=== PATIENT | female | born 1990 | race Caucasian/White ===

== ENCOUNTER 2022-11-06 06:48 | Observation (INO) ==
[2022-11-06] MEDS ORDERED: SODIUM CHLORIDE 0.9% 1000ML 1,000 ML IV STA (07:30)
[2022-11-06] MEDS ORDERED: ONDANSETRON INJ 2 MG/ML 2 ML VIAL IV STA (07:30)
[2022-11-06] MEDS ORDERED: KETOROLAC TROMETHAMINE 15 MG/ML VIAL IV STA (07:30)
--- NOTE | 2022-11-06 07:34 | Emergency Department Note ---
Impression & Plan Complicated UTI (urinary tract infection), Acute pyelitis ED Provider Note CHIEF COMPLAINT: Right flank and abdominal pain HISTORY OF PRESENTING ILLNESS: This is a 32-year-old female who presents to the emergency department by private vehicle with complaint of right-sided abdominal and flank pain for the last few days. She is also having some suprapubic pain. The pain has been constant, and has been getting progressively more severe, she currently rates the pain 8/10. She is unsure if she has had any fevers, but states that she has been having chills and sweats at home. Associated nausea but no vomiting. Denies diarrhea or constipation. She has taken ibuprofen for the pain with minimal relief, she last took this about 8 hours ago. She notes a history of urinary retention and "blockages in my ureter from scar tissue" but denies a history of kidney stones. 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 She reports surgical history of cholecystectomy and total hysterectomy for endometriosis. She denies any chest pain, chest tightness, shortness of breath, dizziness or syncope. REVIEW OF SYSTEMS: A complete 10 point review of systems was reviewed with the patient with pertinent positives and negatives as per history of present illness. All else were negative. PAST MEDICAL HISTORY: Anxiety, depression, bipolar, history of total hysterectomy and cholecystectomy SOCIAL HISTORY: Lives at home, she is a current everyday smoker ALLERGIES: Reviewed in chart with the patient PHYSICAL EXAM: CONSTITUTIONAL: Pleasant and cooperative. Nontoxic appearing and in no acute distress. Well appearing and well nourished. HEENT: Normocephalic, atraumatic. NECK: Supple, full active range of motion without discomfort. RESPIRATORY: Clear to auscultation bilaterally with no wheezing, crackles, rhonchi or stridor. Equal expansion bilaterally. CARDIOVASCULAR: Regular rate and rhythm with no murmurs, rubs or gallops. Normal peripheral perfusion. No edema. GASTROINTESTINAL: Diffuse tenderness to palpation, most tender in the right mid and lower abdomen. No rebound tenderness or guarding. Abdomen is soft and nondistended. No palpable masses or HSM. Bowel sounds present in all quadrants. Bilateral CVA tenderness. MUSCULOSKELETAL: Full range of motion of all joints without discomfort. INTEGUMENTARY: No rash or other significant dermatologic conditions noted. NEUROLOGIC: Alert and oriented X 4 with normal affect. Normal speech. Normal gait observed. ED COURSE AND MEDICAL DECISION MAKING: CC: Patient presenting with complaint of right flank and abdominal pain DIFFERENTIAL DIAGNOSIS: Includes, but not limited to pyelonephritis, UTI, ureteral stone, appendicitis, ovarian cyst, ovarian torsion, cholelithiasis, pancreatitis, gastroenteritis, colitis, diverticulitis, PID, constipation, among others. INTERPRETATION OF LABS: No leukocytosis, no anemia, normal platelets, no significant electrolyte abnormalities, normal renal function, normal liver enzymes and lipase. UA shows large WBCs and 1+ bacteria with large epithelial cells, no RBCs. COVID-negative. MEDICATION RECONCILIATION: I attest that I have personally reviewed the patient's current medication list. INITIAL VITAL SIGNS REVIEW: I reviewed the patient's initial vital signs and interpret them as follows: T: Afebrile; BP: Normotensive; HR: Within normal limits; RR: Within normal limits; Pulse Ox: Within normal limits on room air. MDM SUMMARY: Patient was evaluated at bedside, history and physical exam performed. Patient is alert and oriented, in no acute distress, resting calmly in the stretcher. She is afebrile and nontoxic-appearing, does appear to be uncomfortable from pain and is tearful during my exam. Diffuse tenderness throughout the abdomen, most tender along the right side as noted above. Bilateral CVA tenderness. Cardiac monitoring: An order was placed for continuous cardiac monitoring. The monitor shows a rate of 72 beats per minute with normal sinus rhythm. Orders were placed for labs, UA, IV fluid bolus for hydration, IV Toradol for pain, IV Zofran for nausea, CT abdomen/pelvis with IV to evaluate for abdominal pain. Patient discussed with Dr. Chawla, who agrees with my assessment, plan, and di sposition. Labs and imaging reviewed as above, no leukocytosis, normal renal function, no significant abnormalities. UA suspicious for possible UTI though there are large epithelial cells which may be consistent with contaminated specimen, urine culture pending. CT imaging shows urothelial thickening of the bilateral ureters concerning for pyelitis, distended bladder, no ureteral stones or hydronephrosis. Patient reassessed multiple times throughout ED stay, she continues to complain of severe pain and is tearful. She has already received 15 mg IV Toradol and 8 mg total of IV morphine and states that this "has not touched my pain." The patient did request Dilaudid by name stating that this has worked for her in the past. I was unable to obtain any data from PDMP regarding the patient, no reports available. Given the patient's reported history of urinary retention in the setting of se froylan pain with CT findings concerning for pyelitis, I did feel it was warranted to admit this patient for further evaluation and IV antibiotics. 2 g Rocephin IV ordered and 0.5 mg IV Dilaudid ordered for continued pain management. I spoke on the phone with Dr. Lujan, [facility] Hospitalist, who agrees to evaluate the patient for admission The patient was updated on all results and plan for admission, she was agreeable to this plan. The patient was stable at the time of admission. The chart was completed utilizing [employer] Speech voice recognition software. Grammatical errors, random word insertions, pronoun errors, and incomplete sentences are an occasional consequence of this system due to software limitations, ambient noise, and hardware issues. Any formal questions or concerns about the content, text, or information contained within the body of this dictation should be directly addressed to the nurse practitioner for clarification. Past Med/Surg History Medical History (Updated 11/06/22 @ 16:48 by KAROLINE Clayton) Bipolar affect, depressed Ureteral obstruction Surgical History (Updated 11/06/22 @ 10:59 by Elan Lujan MD) H/O: hysterectomy History of cholecystectomy Social History (Updated 11/06/22 @ 10:59 by Elan Lujan MD) Smoking Status: Current every day smoker Tobacco Type: Cigarettes Cigarettes Per Day: 3-5; Hx Alcohol Use: Yes Alcohol type: beer Hx Substance Use: No Preferred Language: Upper Sorbian Communication Ability: Effective Interlocker Required: No Beliefs That Will Affect Care: None Current Living Situation: Alone Other Information That Helps Us Care for You: No Feels Safe at Home: Yes Assistive Devices: None Allergies Allergies Allergy/AdvReac Type Severity Reaction Status Date / Time codeine Allergy Mild Rash Unverified 11/06/22 10:21 Home Meds Home Medications Medication Instructions Recorded Confirmed buspirone 10 mg tablet 10 mg PO BID 11/06/22 11/06/22 estradiol 2 mg tablet 2 mg PO PM 11/06/22 11/06/22 fluoxetine 60 mg tablet 60 mg PO PM 11/06/22 11/06/22 lurasidone 40 mg tablet (Latuda) 40 mg PO PM 11/06/22 11/06/22 trazodone 150 mg tablet 150 mg PO QAM 11/06/22 11/06/22 Results & Data (ED) Vital Signs Vital Signs - 24 hr 11/06/22 06:53 Temperature 36.8 C Temperature Source Temporal Artery Scan Pulse Rate 75 Respiratory Rate 18 Blood Pressure 126/75 Blood Pressure Mean 92 Pulse Oximetry 98 Oxygen Delivery Method Room Air Sepsis Recent Fever Within 48 Hours No Sepsis New/Unexplained Change in Mental Status No Sepsis Action Taken by Nursing No Action Required Laboratory Data 11/06/22 07:55 11/06/22 07:55 Lab Results 11/06/22 11/06/22 11/06/22 Range/Units 07:40 07:55 07:55 WBC 7.34 (4.8-10.8) K/ul RBC 3.97 L (4.20-5.40) M/uL Hgb 12.5 (12.0-16.0) g/dl Hct 37.1 (37.0-47.0) % MCV 93.5 (80.0-100.0) fL MCH 31.5 (25.0-34.0) pg MCHC 33.7 (32.0-36.0) g/dL RDW Std Deviation 42.5 (36.4-46.3) fL RDW Coeff of Tricia 12.2 (11.5-14.5) % Plt Count 195 (130-400) K/uL MPV 9.4 (9.4-12.4) fL Immature Gran % (Auto) 0.3 % Neut % (Auto) 61.9 % Lymph % (Auto) 29.8 % Sawyer % (Auto) 6.1 % Eos % (Auto) 1.5 % Baso % (Auto) 0.4 % Neut # (Auto) 4.54 (1.40-6.50) K/uL Lymph # (Auto) 2.19 (1.2-3.4) K/uL Sawyer # (Auto) 0.45 (0.11-0.59) K/uL Eos # (Auto) 0.11 (0-0.50) K/uL Baso # (Auto) 0.03 (0-0.2) K/uL Immature Gran # (Auto) 0.02 (0.01-0.20) K/uL Sodium 139 (136-145) mmol/L Potassium 3.5 (3.5-5.1) mmol/L Chloride 107 (98-107) mmol/L Carbon Dioxide 25 (21-32) mmol/L Anion Gap 7 (3-11) BUN 11 (6-23) mg/dl Creatinine 0.69 (0.6-1.2) mg/dl Est Cr Clr Drug Dosing 134.5 ml/min Est GFR ( Amer) 133.5 ml/min Est GFR (Non-Af Amer) 115.2 ml/min BUN/Creatinine Ratio 15.9 (10-20) Glucose 94 (70-99(Fasting)) mg/dl Calcium 9.3 (8.6-10.3) mg/dl Total Bilirubin 0.3 (0.2-1.0) mg/dl AST 11 L (13-39) U/L ALT 9 (7-52) U/L Alkaline Phosphatase 52 (34-104) U/L Total Protein 7.0 (6.0-8.3) gm/dl Albumin 4.3 (3.4-5.0) gm/dl Globulin 2.7 (2.5-4.0) gm/dl Albumin/Globulin Ratio 1.6 (0.9-2) Lipase 23 (11-82) U/L Urine Color Yellow Urine Appearance Clear (Clear) Urine pH 6.0 (4.5-7.5) Ur Specific Old[place]ams 1.009 (1.000-1.030) Urine Protein Negative (Negative) Urine Glucose (UA) Negative (Negative) Urine Ketones Trace H (Negative) Urine Blood 1+ H (Negative) Urine Nitrite Negative (Negative) Urine Bilirubin Negative (Negative) Urine Urobilinogen Negative (Negative) Ur Leukocyte Esterase 1+ H (Negative) Urine WBC (Auto) 10-30 H (0-5) /hpf Urine RBC (Auto) 0-4 (0-4) /hpf U Hyaline Cast (Auto) 1-5 (0-5) /lpf U Epithel Cells (Auto) >30 H (0-5) /lpf Urine Bacteria (Auto) 1+ H (Negative) Administered Medications Hydromorphone HCl (Hydromorphone Inj 0.5 Mg/0.5 Ml Syr) 0.5 mg IV Q4H PRN PRN Reason: Pain, breakthrough 3rd line Stop: 11/20/22 11:01 Last Admin: 11/06/22 16:38 Dose: 0.5 mg Potassium Chloride/Sodium Chloride (Normal Saline W/20 Meq Kcl) 20 meq in 1,000 mls @ 120 mls/hr IV .Q8H20M [facility]; Protocol Stop: 11/06/22 19:34 Last Admin: 11/06/22 16:44 Dose: 120 mls/hr Ketorolac Tromethamine (Ketorolac Tromethamine 15 Mg/Ml Vial) 10 mg IV Q6H PRN PRN Reason: pain second line Stop: 11/11/22 11:14 Last Admin: 11/06/22 14:42 Dose: 10 mg Documented By: COURTNEY Discontinued Medications Hydromorphone HCl (Hydromorphone Inj 0.5 Mg/0.5 Ml Syr) 0.5 mg IV NOW STA Stop: 11/06/22 10:06 Last Admin: 11/06/22 10:52 Dose: 0.5 mg Documented By: DILAN Hydromorphone HCl (Hydromorphone Inj 0.5 Mg/0.5 Ml Syr) 0.5 mg IV Q6H PRN PRN Reason: Pain, breakthrough 3rd line Stop: 11/20/22 11:01 Last Admin: 11/06/22 12:09 Dose: 0.5 mg Documented By: COURTNEY Sodium Chloride (Nss 1000ml) 1,000 mls @ 999 mls/hr IV .Q1H1M STA Stop: 11/06/22 08:30 Last Infusion: 11/06/22 09:00 Dose: 0 mls/hr Documented By: Admin: 11/06/22 07:58 Dose: 999 mls/hr Documented By: DILAN Ceftriaxone Sodium (Rocephin) 2,000 mg in 70 mls @ 140 mls/hr IV NOW STA Stop: 11/06/22 10:27 Last Infusion: 11/06/22 12:45 Dose: 0 mls/hr Documented By: Admin: 11/06/22 12:09 Dose: 140 mls/hr Documented By: COURTNEY Ioversol (Optiray 320 500ml) 94 ml IV ONCE ONE Stop: 11/06/22 09:11 Last Admin: 11/06/22 09:10 Dose: 94 ml Documented By: KACI(3) Ketorolac Tromethamine (Ketorolac Tromethamine 15 Mg/Ml Vial) 15 mg IV NOW STA Stop: 11/06/22 07:31 Last Admin: 11/06/22 07:59 Dose: 15 mg Documented By: DILAN Morphine Sulfate (Morphine Sulfate 4 Mg/Ml 1 Ml Carp\\Vial) 4 mg IV NOW STA Stop: 11/06/22 08:24 Last Admin: 11/06/22 08:26 Dose: 4 mg Documented By: DILAN Morphine Sulfate (Morphine Sulfate 4 Mg/Ml 1 Ml Carp\\Vial) 4 mg IV NOW STA Stop: 11/06/22 08:54 Last Admin: 11/06/22 09:00 Dose: 4 mg Documented By: DILAN Ondansetron HCl (Ondansetron Inj 2 Mg/Ml 2 Ml Vial) 4 mg IV NOW STA Stop: 11/06/22 07:31 Last Admin: 11/06/22 07:59 Dose: 4 mg Documented By: DILAN Imaging Data Radiologist's Impression: Abdomen/Pelvis CT 11/06/22 07:[address] WITH IV CONTRAST CT DOSE: 593.38 mGy.cm HISTORY: right abd/flank pain, h/o urinary retention TECHNIQUE: Multiaxial CT images of the abdomen and pelvis were performed following the use of intravenous contrast. A dose lowering technique was util ized adhering to the principles of ALARA. COMPARISON STUDY: None. FINDINGS: The lung bases are clear. No pneumoperitoneum. No pneumatosis. No fractures identified. Prior cholecystectomy. Mild bile duct dilatation is likely due to the patient's postcholecystectomy state. No hepatic or splenic masses. The punctate calcified granuloma within the spleen. The adrenal glands and pancreas unremarkable. The kidneys enhance normally. Questionable mild u rothelial thickening within the bilateral ureters. No ureteral stones. No hydronephrosis. Mild fullness within the right renal collecting system may be due to the distended bladder. No bladder wall thickening. The uterus appears surgically absent. No pelvic free fluid. A few colonic diverticula. No evidence for acute diverticulitis. No bowel wall thickening or obstruction. Normal appendix. IMPRESSION: 1. Questionable mild urothelial thickening within the bilateral ureters. This raises the possibility of a nonspecific pyelitis. Recommend correlation with urinalysis. 2. The kidneys enhance normally. No ureteral stones or hydronephrosis. 3. Mildly distended bladder. No bladder wall thickening. 4. Normal appendix. 5. No bowel wall thickening or obstruction. 6. Prior cholecystectomy and hysterectomy. ACT 112: Negative or not required by law. Electronically signed by: Darius Anglin M.D. 11/06/2022 9:28 AM Discharge Plan Visit Data Chief Complaint: Flank Pain Stated Complaint: RT FLANK PAIN ED Provider: Joaquin Chawla ED Midlevel Provider: Sameera Smith Discharge Problem: Complicated UTI (urinary tract infection), Acute pyelitis Patient Disposition: Admitted As Inpatient Condition: Good Discharge Instructions Interventions: ED Discharge Assessment Last Done: 11/06/22 15:24
[2022-11-06 08:11] LABS: Basophils # (auto) 0.03 K/uL (0-0.2); Basophils % (auto) 0.4 %; Eosinophils # (auto) 0.11 K/uL (0-0.50); Eosinophils % (auto) 1.5 %; Hematocrit (blood only) 37.1 % (37.0-47.0); Hemoglobin 12.5 g/dl (12.0-16.0); Immature Granulocytes # (auto) 0.02 K/uL (0.01-0.20); Immature Granulocytes % (auto) 0.3 %; Lymphocytes # (auto) 2.19 K/uL (1.2-3.4); Lymphocytes % (auto) 29.8 %; Mean Corpuscular Hemoglobin 31.5 pg (25.0-34.0); Mean Corpuscular Hgb Conc 33.7 g/dL (32.0-36.0); Mean Corpuscular Volume 93.5 fL (80.0-100.0); Mean Platelet Volume 9.4 fL (9.4-12.4); Monocytes # (auto) 0.45 K/uL (0.11-0.59); Monocytes % (auto) 6.1 %; Neutrophils # (auto) 4.54 K/uL (1.40-6.50); Neutrophils % (auto) 61.9 %; Platelet Count 195 K/uL (130-400); RDW Coefficient of Variation 12.2 % (11.5-14.5); RDW Standard Deviation 42.5 fL (36.4-46.3); Red Blood Count 3.97 M/uL (4.20-5.40); White Blood Count 7.34 K/ul (4.8-10.8)
[2022-11-06 08:19] LABS: Appearance Urine Clear (Clear); Bacteria Urine Automated 1+ (Negative); Bilirubin Urine Negative (Negative); Blood Urine 1+ (Negative); Color Urine Yellow; Epithelial Cell Urine Auto >30 /lpf (0-5); Glucose Urine UA Negative (Negative); Ketones Urine Trace (Negative); Leukocyte Esterase Urine 1+ (Negative); Nitrite Urine Negative (Negative); Protein Urine Negative (Negative); RBC Urine Automated 0-4 /hpf (0-4); Specific Gravity Urine 1.009 (1.000-1.030); Urobilinogen Urine Negative (Negative)
[2022-11-06] MEDS ORDERED: MoRPHine SULFATE 4 MG/ML 1 ML CARP\\VIAL IV STA ×2 (08:23→08:53)
[2022-11-06 08:27] LABS: Albumin Globulin Ratio 1.6 (0.9-2); Albumin Level 4.3 gm/dl (3.4-5.0); BUN Creatinine Ratio 15.9 (10-20); Bilirubin,Total 0.3 mg/dl (0.2-1.0); Calcium 9.3 mg/dl (8.6-10.3); Creatinine Clr Calc Pharmacy 134.5 ml/min; Est GFR (African American) 133.5 ml/min; Est GFR (Non-African American) 115.2 ml/min; Globulin 2.7 gm/dl (2.5-4.0); Potassium 3.5 mmol/L (3.5-5.1)
[2022-11-06] MEDS ORDERED: OPTIRAY 320 500ml IV ONE (09:10)
--- NOTE | 2022-11-06 09:30 | CT Scan Report ---
ABDOMEN AND PELVIS CT WITH IV CONTRAST CT DOSE: 593.38 mGy.cm HISTORY: right abd/flank pain, h/o urinary retention TECHNIQUE: Multiaxial CT images of the abdomen and pelvis were performed following the use of intrave nous contrast. A dose lowering technique was utilized adhering to the principles of ALARA. COMPARISON STUDY: None. FINDINGS: The lung bases are clear. No pneumoperitoneum. No pneumatosis. No fractures identified. Amada or cholecystectomy. Mild bile duct dilatation is likely due to the patient's postcholecystectomy stat e. No hepatic or splenic masses. The punctate calcified granuloma within the spleen. The adrenal glan ds and pancreas unremarkable. The kidneys enhance normally. Questionable mild urothelial thickening w ithin the bilateral ureters. No ureteral stones. No hydronephrosis. Mild fullness within the right re nal collecting system may be due to the distended bladder. No bladder wall thickening. The uterus trina ears surgically absent. No pelvic free fluid. A few colonic diverticula. No evidence for acute divert iculitis. No bowel wall thickening or obstruction. Normal appendix. IMPRESSION: 1. Questionable mild urothelial thickening within the bilateral ureters. This raises the possibility of a nonspecific pyelitis. Recommend correlation with urinalysis. 2. The kidneys enhance normally. No ureteral stones or hydronephrosis. 3. Mildly distended bladder. No bladder wall thickening. 4. Normal appendix. 5. No bowel wall thickening or obstruction. 6. Prior cholecystectomy and hysterectomy. ACT 112: Negative or not required by law. Electronically signed by: Darius Anglin M.D. 11/06/2022 9:28 AM
[2022-11-06] MEDS ORDERED: cefTRIAXone SODIUM 2,000 MG/70 ML BAG IV STA (09:58)
[2022-11-06] MEDS ORDERED: HYDROmorphone INJ 0.5 MG/0.5 ML SYR IV STA (10:05)
--- NOTE | 2022-11-06 10:30 | History & Physical Report ---
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 She has some pain and burning with urination consistent with complicated UTI. CT shows questionable mild urothelial thickening bilaterally, mildly distended bladder without wall thickening, and overall with UA contaminated versus infected appearing suspicious for complicated UTI/pyelitis. Complicated UTI No leukocytosis, afebrile -Bilateral R>L sided flank pain worsening over 3 days, associated with fevers and sweats/chills but no rigors per patient Hemoglobin 12.5 No gross electrolyte derangements Creatinine 0.69, baseline creatinine is normal No transaminitis Continue Rocephin pending culture results UA is infected versus contaminated appearing, high epi counts but with bacteria and leukocyte esterase and 1+ blood. CT as below clinically correlates with infection CTA/P: 1. Questionable mild urothelial thickening within the bilateral ureters. This raises the possibility of a nonspecific pyelitis. Recommend correlation with urinalysis. 2. The kidneys enhance normally. No ureteral stones or hydronephrosis. 3. Mildly distended bladder. No bladder wall thickening. 4. Normal appendix. 5. No bowel wall thickening or obstruction. 6. Prior cholecystectomy and hysterectomy. Blood cultures pending. Patient is nontachycardic, is normotensive, with no leukocytosis, no fever on admission. Does not meet sepsis criteria, lactate deferred. Appears euvolemic, aggressive crystalloid boluses not indicated at time of bedside assessment. Patient is with some nausea limiting p.o. intake, w ill add 1 bag of supplemental IVF and placed on clears. 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 Last had stents placed in the last year at [facility] in [place]. He is agreeable to having these records faxed to us for review, they have been requested by fax to the ER. She reports that she did have stents placed at that time which were in for 2 weeks and then subsequently removed. She has had some medical care [place], but reports most of her records would be available at [place]. Does not know the name of any physician or group available in [place] or her home that would have other records Patient with continued pain despite Toradol, Tylenol, home ibuprofen, and morphine in the ER and requested hydromorphone for improved pain control. Discussed that may have underlying UTI driving pain and that treatment of the causes most important, following this will use multimodal pain control including Tylenol first-line, Toradol second line, and minimal doses of narcotics for breakthrough conservatively as needed. No PDMP history in [place] or [facility]. No evidence of retention/obstruction at time of admission. We will bladder scan every shift, if retaining greater than PVR 300 straight cath. If requires more than 2 straight caths, Place Bermudez and will consult urology. No indication for Bermudez or stent placement at time of admission (2) H/O: hysterectomy: Plan: - Noted (3) Bipolar affect, depressed: Plan: Continue Latuda, BuSpar, trazodone, fluoxetine (4) History of cholecystectomy: Plan: Noted (5) Anxiety: Plan: Continue medications as noted Plan DVT prophylaxis: Lovenox Diet: Clears, advance to regular as tolerated by patient Disposition: Medical/surgical CODE STATUS: Full code History of Present Illness Primary Care Provider: NO PCP Bren is a 32yo F with a past medical history of abdominal surgery and without history of nephrolithiasis who presents with right-sided abdominal and flank pain for several days, constant and gradually worsening. She has a history of urinary retention 2/2 scar tissue/adhesions. REports recurrent history or urinary retention and 'blocked ureters' due to scar tissue. 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 Reprots ureters were blocked from scar tissue, but tamez snot know more details than this. Had had a history of endometriosis with hystectomy and past cholecystectomy. Last episode similar to this was 6 months ago, required stents. Is not sure if she had hydro or not. Stend was placed by a doctor in [place], does not remember the doctor or practice name. Was at [facility]. Was treated with abx as well, stent was in for 2 weeks at that time. 3x total episodes 2x R one L on the left, first episode was 2017. Hysterectomy was 2015, cholecystectomy was 2014. Has tried ibuprofen 600-800mg q6h for the past 3 days. NO improvement. Tried tylenol x1 initially feeling a little feverish, no other attempted tx. INitially felt flushed, has had fevers an strong sweats with shivering but no rigors. No chest pain or chest pressure NO difficulty breathing +nausea and poor appetite, no vomiting/diarrhea/constipation Medical History: Reviewed. Bipolar depressio, anxiety, recurrent uretal obstruction. Medications: Reviewed. Has not taken AM meds, took meds last night. Surgical History: Reviewed Family history: Reviewed Allergies: Reviewed. Rsh to codeine. No antibiotic allergies. Social History: Cigarette use, ~1 pack per week. Rare social etoh use. No medical or recreational marijuana. Code Status: Full Code. Surrogate DM would be her mother Nancy Putnam at [phone] Allergies Allergy/AdvReac Type Severity Reaction Status Date / Time codeine Allergy Mild Rash Unverified 11/06/22 10:21 Home Medications Medication Instructions Recorded Confirmed Type buspirone 10 mg tablet 10 mg PO BID 11/06/22 11/06/22 History estradiol 2 mg tablet 2 mg PO PM 11/06/22 11/06/22 History fluoxetine 60 mg tablet 60 mg PO PM 11/06/22 11/06/22 History lurasidone 40 mg tablet (Latuda) 40 mg PO PM 11/06/22 11/06/22 History trazodone 150 mg tablet 150 mg PO QAM 11/06/22 11/06/22 History Past Med/Surg History Medical History Bipolar affect, depressed Ureteral obstruction Surgical History (Updated 11/06/22 @ 10:59 by Elan Lujan MD) H/O: hysterectomy History of cholecystectomy Social History (Updated 11/06/22 @ 10:59 by Elan Lujan MD) Smoking Status: Current every day smoker Tobacco Type: Cigarettes Cigarettes Per Day: 3-5; Hx Alcohol Use: Yes (intermittent social etoh) Feels Safe at Home: Yes Review of Systems Review of Systems: All systems reviewed & are unremarkable except as noted in HPI & below Physical Exam Physical Exam: General: A&Ox3. NAD. Cooperative. HEENT: Atraumatic, normocephalic. Vision/hearing intact Pulm: CTAB A&P. -wheezes, -rales, -rhonchi. Symmetrical chest rise. No increased work of breathing. No respiratory distress. Cardiac: RRR, -mrg. Radial pulses intact and symmetrical. Abdominal: No epigastric tenderness. Soft, without rigidity/guarding. Endorses tenderness to palpation without rebound at left lower quadrant and right lower quadrant wrapping around to her flank and back bilaterally, right worse than left Extremities: Warm, dry. Moves all extremities equally. Results & Data Results & Data Vital Signs (Past 12 Hours) Vital Signs Temp Pulse Resp BP Pulse Ox O2 Del Method 11/06/22 06:53 36.8 C 75 18 126/75 98 Room Air PG Care Time/CCT Total # of Minutes Spent Total Time Spent with Patient: Total time spent is greater than 50% in coordination of care (as documented) at patient's floor/unit and/or counseling patient: Coding Level of Care Code 05136 INT INP/OBS CARE 2/55MIN Diagnoses Complicated UTI (urinary tract infection) N39.0 H/O: hysterectomy Z90.710 Bipolar affect, depressed F31.30 History of cholecystectomy Z90.49 Anxiety F41.9
[2022-11-06] MEDS ORDERED: HYDROmorphone INJ 0.5 MG/0.5 ML SYR IV PRN (11:02)
[2022-11-06] MEDS ORDERED: ACETAMINOPHEN 500 MG TAB PO PRN (11:02)
[2022-11-06] MEDS ORDERED: NSS + 20MEQ KCL 20 MEQ/1,000 ML BAG IV SCH (11:15)
[2022-11-06] MEDS: KETOROLAC TROMETHAMINE 15 MG/ML VIAL IV PRN ×2 (14:42→20:41)
[2022-11-06] MEDS: HYDROmorphone INJ 0.5 MG/0.5 ML SYR IV PRN ×2 (16:38→20:30)
[2022-11-06] MEDS ORDERED: Nursing to Pharmacy Communication SCH (20:00)
[2022-11-06] MEDS: ONDANSETRON INJ 2 MG/ML 2 ML VIAL IV PRN (20:29)
[2022-11-06] MEDS: busPIRone 5 MG TAB PO SCH (20:35)
[2022-11-06] MEDS: FLUoxetine HCL 20 MG CAP PO SCH (20:35)
[2022-11-06] MEDS: estradioL 1 MG TAB PO SCH (20:35)
[2022-11-06] MEDS: traZODone HCL 50 MG TAB PO SCH (20:35)
[2022-11-06] MEDS: LURASIDONE HCL 40 MG TAB PO SCH (20:36)
[2022-11-07] MEDS: HYDROmorphone INJ 0.5 MG/0.5 ML SYR IV PRN ×5 (01:04→20:39)
[2022-11-07] MEDS: KETOROLAC TROMETHAMINE 15 MG/ML VIAL IV PRN ×2 (04:05→14:44)
[2022-11-07] MEDS: busPIRone 5 MG TAB PO SCH ×2 (07:38→20:38)
[2022-11-07 07:39] LABS: Basophils # (auto) 0.02 K/uL (0-0.2); Basophils % (auto) 0.4 %; Eosinophils # (auto) 0.09 K/uL (0-0.50); Eosinophils % (auto) 1.7 %; Hematocrit (blood only) 32.5 % (37.0-47.0); Hemoglobin 10.6 g/dl (12.0-16.0); Immature Granulocytes # (auto) 0.01 K/uL (0.01-0.20); Immature Granulocytes % (auto) 0.2 %; Lymphocytes # (auto) 2.39 K/uL (1.2-3.4); Lymphocytes % (auto) 46.1 %; Mean Corpuscular Hemoglobin 31.3 pg (25.0-34.0); Mean Corpuscular Hgb Conc 32.6 g/dL (32.0-36.0); Mean Corpuscular Volume 95.9 fL (80.0-100.0); Mean Platelet Volume 9.5 fL (9.4-12.4); Monocytes # (auto) 0.29 K/uL (0.11-0.59); Monocytes % (auto) 5.6 %; Neutrophils # (auto) 2.38 K/uL (1.40-6.50); Platelet Count 176 K/uL (130-400); RDW Coefficient of Variation 12.6 % (11.5-14.5); RDW Standard Deviation 44.2 fL (36.4-46.3); Red Blood Count 3.39 M/uL (4.20-5.40); White Blood Count 5.18 K/ul (4.8-10.8)
[2022-11-07 07:56] LABS: BUN Creatinine Ratio 14.3 (10-20); Calcium 8.2 mg/dl (8.6-10.3); Creatinine Clr Calc Pharmacy 186.8 ml/min; Est GFR (African American) 149.4 ml/min; Est GFR (Non-African American) 128.9 ml/min; Potassium 3.8 mmol/L (3.5-5.1)
[2022-11-07] MEDS: ONDANSETRON INJ 2 MG/ML 2 ML VIAL IV PRN ×2 (08:43→20:40)
[2022-11-07] MEDS ORDERED: traZODone HCL 50 MG TAB PO SCH (09:00)
[2022-11-07] MEDS: cefTRIAXone SODIUM 2,000 MG in DEXTROSE 5% 50 ML IV SCH (10:41)
--- NOTE | 2022-11-07 16:52 | Hospitalist Progress Note ---
Date of Service November 07, 2022 Assessment & Plan (1) Complicated UTI (urinary tract infection): Plan: Acute/unstable - complicated UTI associated pyelitis - Bilateral R>L sided flank pain worsening over 3 days, associated with fevers and sweats/chills but no rigors per patient Continue Rocephin pending culture results UA is infected versus contaminated appearing, high epi counts but with bacteria and leukocyte esterase and 1+ blood. CT clinically correlates with infection Urine and Blood cultures pending. 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 Last had stents placed in the last year at [facility] in [place]. He is agreeable to having these records faxed to us for review, they have been requested by fax to the ER. She reports that she did have stents placed at that time which were in for 2 weeks and then subsequently removed. She has had some medical care [place], but reports most of her records would be available at [place]. Does not know the name of any physician or group available in [place] or her home that would have other records Per admitting provider: patient with continued pain despite Toradol, Tylenol, home ibuprofen, and morphine in the ER and requested hydromorphone for improved pain control. Discussed that may have underlying UTI driving pain and that treatment of the causes most important, following this will use multimodal pain control including Tylenol first-line, Toradol second line, and minimal doses of narcotics for breakthrough conservatively as needed. No PDMP history in [place] or [facility]. No evidence of retention/obstruction at time of admission. - bladder scan every shift, if retaining greater than PVR 300 straight cath. If requires more than 2 straight caths, Place Bermudez and will consult urology. No indication for Bermudez or stent placement at time of admission (2) Bipolar affect, depressed: Plan: Chronic/stable - Bipolar d/o and anxiety Continue Latuda, BuSpar, trazodone, fluoxetine Plan No plan for repeat labs at this time. Will follow up with her culture results tomorrow. Anticipate dc home tomorrow. Plan to be d/w Dr. Beatty. Admission and Anticipated Discharge Date Admission Date: November 06, 2022 Subjective Patient seen on daily rounds. She continues to endorse R flank pain and justine sea/vomiting. Denies fever/chills, chest pain, dyspnea. Physical Exam Physical Exam: GENERAL: 32 yo well-developed, well-nourished WF. NAD. LUNGS: Clear to auscultation bilaterally. No W/R/R. CARDIOVASCULAR: Regular rate and rhythm. ABDOMEN: Soft, non-tender and non-distended. BS normoactive x 4 quad. Results & Data Results & Data Vital Signs (Past 12 Hours) Vital Signs Temp Pulse Resp BP Pulse Ox O2 Del Method 11/07/22 15:36 36.8 C 72 14 102/63 94 Room Air 11/07/22 07:27 36.5 C 58 L 14 101/63 94 Room Air Laboratory Results 11/07/22 07:03 11/07/22 07:03 PG Care Time/CCT Total # of Minutes Spent Total Time Spent with Patient: Total time spent is greater than 50% in coordination of care (as documented) at patient's floor/unit and/or counseling patient: Coding Level of Care Code 47879 SUB INP/OBS CARE 2/35MIN Diagnoses Complicated UTI (urinary tract infection) N39.0 Bipolar affect, depressed F31.30
[2022-11-07] MEDS: estradioL 1 MG TAB PO SCH (20:39)
[2022-11-07] MEDS: LURASIDONE HCL 40 MG TAB PO SCH (20:39)
[2022-11-07] MEDS: FLUoxetine HCL 20 MG CAP PO SCH (20:39)
[2022-11-07] MEDS: traZODone HCL 50 MG TAB PO SCH (20:46)
[2022-11-08] MEDS: KETOROLAC TROMETHAMINE 15 MG/ML VIAL IV PRN ×2 (01:17→08:21)
[2022-11-08] MEDS: HYDROmorphone INJ 0.5 MG/0.5 ML SYR IV PRN (05:08)
[2022-11-08] MEDS: busPIRone 5 MG TAB PO SCH (08:21)
[2022-11-08] MEDS: cefTRIAXone SODIUM 2,000 MG in DEXTROSE 5% 50 ML IV SCH (10:15)
--- NOTE | 2022-11-08 12:57 | Discharge Summary ---
Date of Service November 08, 2022 Admission HPI Per Admitting Provider Bren is a 32yo F with a past medical history of abdominal surgery and without history of nephrolithiasis who presents with right-sided abdominal and flank pain for several days, constant and gradually worsening. She has a history of urinary retention 2/2 scar tissue/adhesions. REports recurrent history or urinary retention and 'blocked ureters' due to scar tissue. 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 Reprots ureters were blocked from scar tissue, but tamez snot know more details than this. Had had a history of endometriosis with hystectomy and past cholecystectomy. Last episode similar to this was 6 months ago, required stents. Is not sure if she had hydro or not. Stend was placed by a doctor in [place], does not remember the doctor or practice name. Was at [facility]. Was treated with abx as well, stent was in for 2 weeks at that time. 3x total episodes 2x R one L on the left, first episode was 2016. Hysterectomy was 2015, cholecystectomy was 2014. Has tried ibuprofen 600-800mg q6h for the past 3 days. NO improvement. Tried tylenol x1 initially feeling a little feverish, no other attempted tx. INitially felt flushed, has had fevers an strong sweats with shivering but no rigors. No chest pain or chest pressure NO difficulty breathing +nausea and poor appetite, no vomiting/diarrhea/constipation Medical History: Reviewed. Bipolar depressio, anxiety, recurrent uretal obstruction. Medications: Reviewed. Has not taken AM meds, took meds last night. Surgical History: Reviewed Family history: Reviewed Allergies: Reviewed. Rsh to codeine. No antibiotic allergies. Social History: Cigarette use, ~1 pack per week. Rare social etoh use. No medical or recreational marijuana. Code Status: Full Code. Surrogate DM would be her mother Nancy Putnam at [phone] Principal Diagnosis complicated uti with pyelitis Discharge Exam GENERAL: 32 yo well-developed, well-nourished WF. NAD. LUNGS: Clear to auscultation bilaterally. No W/R/R. CARDIOVASCULAR: Regular rate and rhythm. ABDOMEN: Soft, non-tender and non-distended. BS normoactive x 4 quad. Discharge Data Allergies Allergy/AdvReac Type Severity Reaction Status Date / Time codeine Allergy Mild Rash Unverified 11/06/22 10:21 Consultations 11/06/22 10:06 ED Decision to Admit Stat Ordered Studies Abdomen/Pelvis CT 11/06/22 07:[address] WITH IV CONTRAST CT DOSE: 593.38 mGy.cm HISTORY: right abd/flank pain, h/o urinary retention TECHNIQUE: Multiaxial CT images of the abdomen and pelvis were performed following the use of intravenous contrast. A dose lowering technique was utilized adhering to the principles of ALARA. COMPARISON STUDY: None. FINDINGS: The lung bases are clear. No pneumoperitoneum. No pneumatosis. No fractures identified. Prior cholecystectomy. Mild bile duct dilatation is likely due to the patient's postcholecystectomy state. No hepatic or splenic masses. The punctate calcified granuloma within the spleen. The adrenal glands and pancreas unremarkable. The kidneys enhance normally. Questionable mild urothelial thickening within the bilateral ureters. No ureteral stones. No hydronephrosis. Mild fullness within the right renal collecting system may be due to the distended bladder. No bladder wall thickening. The uterus appears surgically absent. No pelvic free fluid. A few colonic diverticula. No evidence for acute diverticulitis. No bowel wall thickening or obstruction. Normal appendix. IMPRESSION: 1. Questionable mild urothelial thickening within the bilateral ureters. This raises the possibility of a nonspecific pyelitis. Recommend correlation with urinalysis. 2. The kidneys enhance normally. No ureteral stones or hydronephrosis. 3. Mildly distended bladder. No bladder wall thickening. 4. Normal appendix. 5. No bowel wall thickening or obstruction. 6. Prior cholecystectomy and hysterectomy. ACT 112: Negative or not required by law. Electronically signed by: Darius Anglin M.D. 11/06/2022 9:28 AM Hospital Course (1) Complicated UTI (urinary tract infection): Acute/unstable - complicated UTI associated pyelitis - Bilateral R>L sided flank pain worsening over 3 days, associated with fevers and sweats/chills but no rigors per patient Continue Rocephin pending culture results UA is infected versus contaminated appearing, high epi counts but with bacteria and leukocyte esterase and 1+ blood. 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 Last had stents placed in the last year at [facility] in [place]. He is agreeable to having these records faxed to us for review, they have been requested by fax to the ER. She reports that she did have stents placed at that time which were in for 2 weeks and then subsequently removed. She has had some medical care [place], but reports most of her records would be available at [place]. Does not know the name of any physician or group available in [place] or her home that would have other records Per admitting provider: patient with continued pain despite Toradol, Tylenol, home ibuprofen, and morphine in the ER and requested hydromorphone for improved pain control. Discussed that may have underlying UTI driving pain and that treatment of the causes most important, following this will use multimodal pain control including Tylenol first-line, Toradol second line, and minimal doses of narcotics for breakthrough conservatively as needed. No PDMP history in [place] or [facility]. No evidence of retention/obstruction at time of admission. - Given her appearance on CT and culture data, will treat for total of 7 days with antibiotics including transitioning to Cefdinir x 5 days (+2 days of Ceftriaxone for total of 7) and Flagyl x 7 days (2) Bipolar affect, depressed: Chronic/stable - Bipolar d/o and anxiety Continue Latuda, BuSpar, trazodone, fluoxetine Plan Patient is medically and hemodynamically stable for discharge home with outpatient follow up with her PCP. She can use Tylenol/Motrin as needed for pain. She has also requested a script for Diflucan d/t getting yeast infections while taking antibiotics, 2 doses of Fluconazole 150mg has been prescribed. Plan has been d/w Dr. Beatty who is in agreement with aforementioned. Total Time Total Time Spent Total Time Spent (In Minutes): >30 minutes Discharge Plan Discharge Items Patient Disposition: Home - Self-Care Reason For Visit: complicated uti, hx urethal obstruction Discharge Diagnosis: urinary tract infection Condition on Discharge: Good Activity: Resume your previous activity Non-emergency contact: Primary Care Provider Call non-emergency contact if: you have any medication questions and your symptoms worsen Follow-up/Referrals: PCP,NO [Primary Care Provider] - Diet: Regular Addtl Attending Provider Instructions: You were hospitalized for a complicated urinary tract infection that spread to your ureters and caused inflammation and pain. In order to treat this, you were started on a course of IV antibiotics called Ceftriaxone. On your urine culture, you grew two different types of bacteria which will require two different antibiotics. You will be transitioned to oral antibiotics to complete at home: Cefdinir 300mg twice a day and Flagyl 500mg twice a day. Take your antibiotics until they are gone. You can start the Cefdinir and Flagyl both tomorrow 11/08/22. You should continue to stay well hydrated by drinking plenty of water. You may take Tylenol or Ibuprofen as needed for pain. It is recommended that you follow up with a primary care provider within 1 week of discharge or sooner if needed. If you have any questions or concerns after your discharged, feel free to contact the nonemergen contact number. In the event of an emergency, call 911. 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
== END 2022-11-08 13:34 | disposition home or self-care (01) ==
LOC: ED 06:48 → 3N 06:48 → SUATTDRO 11:01 → 3N 15:24